=== PATIENT | male | born 1990 | race Caucasian/White ===

== ENCOUNTER 2017-03-30 12:23 | Emergency (ER) | payer OTHER ==
[~2017-03-30] VITALS: Ht 182.9 cm; Wt 81.6 kg
[2017-03-30] MEDS ORDERED: SUBUTEX IV (12:56)
--- NOTE | 2017-03-30 12:56 | ED Upper Extremity ---
General Chief Complaint: Foreign Body Stated Complaint: INSULIN TIP BROKE OFF Nursing Triage Note: PT STATES HAS INSULIN NEEDLE POSSIBLY BROKE OFF IN L AC AREA. PT HAS NUMEROUS NEEDLE TRACKS NOTED IN AC AREAS BILATERALLY Nursing Sepsis Screen: No Definite Risk Source: patient Exam Limitations: no limitations History of Present Illness Time seen by provider: 12:54 Initial Comments To ER with reports of a possible foreign body in the left antecubital fossa. Patient states that he was injecting pill form Suboxone into the left antecubital space. The needle bent as he was inserting it. He pulled it out, the needle remain in his arm separate from the syringe. He then attempted to use a razor blade to lift up the needle to remove it and felt something pop and is unsure if the needle came out or is still in his arm. He states that he has thick carpet at home so the needle could be in the carpet but he didn't see it. He states he typically doesn't inject this Suboxone but "every now and then I have to use a needle". This reportedly happened 15 minutes prior to arrival. He states that he does have hepatitis C. Onset: just prior to arrival Severity: moderate Pain/Injury Location: left arm, left elbow Allergies and Home Medications Home Medications [Subutex] , Unknown Dose IV BID, (Reported) Constitutional: see HPI EENTM: see HPI Respiratory: no symptoms reported Cardiovascular: no symptoms reported Genitourinary: no symptoms reported Musculoskeletal: see HPI Skin: no symptoms reported Psychiatric/Neurological: No Symptoms Reported Past Psceuuv-Wjdbmn-Oulcya Hx Patient Social History Alcohol Use: Denies Use Recreational Drug Use: No Smoking Status: Current Everyday Smoker Type Used: Electronic/Vapor Recent Foreign Travel: No Contact w/Someone Who Travel: No Recent Infectious Disease Expo: No Recent Hopitalizations: No Physical Abuse: No Sexual Abuse: No Immunizations Up To Date Tetanus Booster (TDap): Less than 5yrs Surgeries History of Surgeries: Yes (WISDOM TEETH,L FOOT,3 SIDE SURG) Psychosocial Suicide Risk Score: 0 Physical Exam Vital Signs Vital Sign - Last 12Hours 03/30/17 12:35 Temp 97.5 Pulse 87 Resp 18 B/P (MAP) 129/98 Pulse Ox 100 Capillary Refill : Less Than 3 Seconds General Appearance: WD/WN, no apparent distress HEENT: PERRL/EOMI, normal ENT inspection Neck: non-tender, full range of motion Respiratory: no respiratory distress, no accessory muscle use Gastrointestinal: non tender, soft Shoulder: normal inspection, non-tender Elbow/Forearm: Left (multiple track quiros and scarred tissue formation over the left antecubital fossa. There is no erythema or fluctuance to suggest abscess.) Wrist: Yes normal inspection, Yes non-tender Hand: normal inspection, non-tender Neurologic/Psychiatric: alert, normal mood/affect, oriented x 3 Skin: normal color, warm/dry Progress/Results/Core Measures Results/Orders Vital Signs/I&O Vital Sign - Last 12Hours 03/30/17 12:35 Temp 97.5 Pulse 87 Resp 18 B/P (MAP) 129/98 Pulse Ox 100 Blood Pressure Mean: 108 Departure Communication (Admissions) Progress Notes 1323-I did discuss the case with Dr. Ruth and Dr. Madera who is on-call for surgery. They both agree that should be left in place as the location of this being in close proximity to neurovascular structures, exploring this with a low likelihood of actually finding the needle even under fluoroscopy, the risks outweigh the benefits. I relayed this to the patient which she was unhappy about initially but ultimately agreed this was the best course of action. Impression Impression: Primary Impression: Soft tissues foreign body Disposition: 01 HOME, SELF-CARE Condition: Stable Departure-Patient Inst. Decision time for Depature: 13:24 Referrals: NO,LOCAL PHYSICIAN (PCP/Family) Primary Care Physician Patient Instructions: NO INSTRUCTIONS GIVEN Add. Discharge Instructions: 1. Please take antibiotics as directed 2. Return to ER for any concerns 3. All discharge instructions reviewed with patient and/or family. Voiced understanding. Scripts Sulfamethoxazole/Trimethoprim (Bactrim Ds Tablet) 1 Each Tablet 1 EACH PO BID, #14 TAB Prov: DIANA KIRK APRN 03/30/17 Copy Copies To 1: HEATHER BELL MD, PETER J APRN Mar 30, 2017 12:56
--- NOTE | 2017-03-30 13:20 | Diagnostic Imaging Report ---
2 views of the left humerus. INDICATION: Injury with an insulin needle that appears to have fractured in the AC region. FINDINGS: There is a thin needle measuring 1 cm in length projecting over the ventral soft tissues of the antecubital region. This is not well seen on the AP projection but appears to project over the olecranon. No fracture or dislocation. The proximal and distal joints appear grossly unremarkable. IMPRESSION: A 1 cm-long foreign body projecting over the ventral soft tissues in the antecubital soft tissues is seen. Dr. Ruth is notified of the results. Dictated by: Dictated on workstation # [id number]
--- NOTE | 2017-03-30 13:24 | Diagnostic Imaging Report ---
Left forearm at 1:21 PM. INDICATION: Broken needle. AP and lateral views were obtained. Reportedly the patient has broken off a needle tip in the antecubital fossa on the left. On the lateral view there is an 8-mm linear metallic density in the soft tissues of the antecubital fossa lying roughly 1.3 cm deep to the skin. This finding is difficult to visualize on the AP view but does seem to be in the medial half of the antecubital fossa. No other radiopaque foreign bodies identified. There is no fracture or acute bony abnormality evident. The soft tissues are otherwise unremarkable. IMPRESSION: 1. There is a small metallic foreign body (needle tip) in the soft tissues along the anterior aspect of the antecubital fossa. 2. There is no acute bony abnormality identified. 3. These results were discussed with Dr. Ruth in the ER. Dictated by: Dictated on workstation # [id number]
[2017-03-30] MEDS ORDERED: SULF1TAB35 PO (13:25)
[2017-03-30 13:30] VITALS: BP 129/98
== END 2017-03-30 13:30 | disposition home or self-care (01) ==
LOC: ER 12:27
DX: S50.852A Superficial foreign body of left forearm, initial encounter (principal); B19.20 Unspecified viral hepatitis C without hepatic coma; F17.210 Nicotine dependence, cigarettes, uncomplicated; W27.3XXA Contact with needle (sewing), initial encounter
CPT/HCPCS: 73060; 73090; 99282